=== PATIENT | male | born 1990 ===

== ENCOUNTER 2018-10-12 19:37 | Inpatient (IN) ==
[2018-10-12] MEDS ORDERED: HYDROmorphone 2 MG/1 ML VIAL IV PRN (20:03)
[2018-10-12] MEDS ORDERED: ONDANSETRON 4 MG/2 ML VIAL IV STA (20:03)
[2018-10-12] MEDS ORDERED: SODIUM CHLORIDE 0.9% 1,000 ML IV STA (20:03)
[2018-10-12] MEDS ORDERED: CEFEPIME 2,000 MG in SODIUM CHLORIDE 0.9% 100 ML IV STA (20:04)
[2018-10-12] MEDS ORDERED: CEFEPIME 2,000 MG VIAL ONE (20:10)
[2018-10-12] MEDS ORDERED: HYDROmorphone 2 MG/1 ML VIAL IV STA (20:55)
[2018-10-12] MEDS: DEXTROSE 5% LACTATED RINGERS 1,000 ML IV SCH (23:07)
[2018-10-12] MEDS: MEROPENEM 1,000 MG in SODIUM CHLORIDE 0.9% 100 ML IV SCH (23:10)
[2018-10-13 06:10] LABS: Albumin 2.8 G/DL (3.4-5.0); Bilirubin,Total 2.2 MG/DL (0.2-1.0); Calcium 8.6 MG/DL (8.5-10.1); Osmolality,Calculated 270.8 MOS/KG (273-304); Potassium 4.1 MMOL/L (3.5-5.1); Total Protein 6.8 G/DL (6.4-8.3)
[2018-10-13] MEDS: DEXTROSE 5% LACTATED RINGERS 1,000 ML IV SCH ×3 (07:18→23:59)
[2018-10-13] MEDS: PANTOPRAZOLE 40 MG VIAL IV SCH (09:07)
[2018-10-13] MEDS: MEROPENEM 1,000 MG in SODIUM CHLORIDE 0.9% 100 ML IV SCH ×2 (09:07→22:40)
[2018-10-13] MEDS: HYDROmorphone 2 MG/1 ML VIAL IV PRN ×3 (09:10→21:16)
[2018-10-13] MEDS: ONDANSETRON 4 MG/2 ML VIAL IV PRN ×2 (09:10→17:05)
[2018-10-14] MEDS: ONDANSETRON 4 MG/2 ML VIAL IV PRN ×3 (00:48→22:42)
[2018-10-14] MEDS: HYDROmorphone 2 MG/1 ML VIAL IV PRN ×4 (00:48→22:43)
[2018-10-14 05:55] LABS: Albumin 2.5 G/DL (3.4-5.0); Bilirubin,Total 1.8 MG/DL (0.2-1.0); Calcium 8.7 MG/DL (8.5-10.1); Osmolality,Calculated 272.7 MOS/KG (273-304); Potassium 3.6 MMOL/L (3.5-5.1); Total Protein 6.4 G/DL (6.4-8.3)
[2018-10-14 07:15] LABS: Basophils # 0.1 10*3/uL (0.0-0.2); Basophils % 0.6 % (0.0-0.8); Eosinophils # 0.5 10*3/uL (0.0-0.87); Eosinophils % 4.5 % (0.00-10.9); Hematocrit 41.2 VOL% (42.0-52.0); Hemoglobin 13.5 GM/DL (14.0-18.0); Lymphocytes # 1.6 10*3/uL (1.4-4.0); Lymphocytes % 15.6 % (21.2-54.2); Mean Corpuscular HGB Conc 32.8 GM/DL (32-36); Mean Corpuscular Hemoglobin 33 PG (27-34); Mean Corpuscular Volume 99.5 FL (87-102); Monocytes # 1.4 10*3/uL (0.11-0.8); Monocytes % 13.7 % (1.7-12.7); Neutrophils # 6.8 10*3/uL (1.4-7.4); Neutrophils % 64.6 % (38.7-73.9); Platelet Count 205 T/CUMM (130-400); Red Blood Count 4.14 MC/CUMM (3.8-5.5); Red Cell Distribution Width 13.1 % (9.3-17.3); White Blood Count 10.5 T/CUMM (4-12)
[2018-10-14] MEDS: DEXTROSE 5% LACTATED RINGERS 1,000 ML IV SCH ×2 (07:42→17:02)
[2018-10-14] MEDS: MEROPENEM 1,000 MG in SODIUM CHLORIDE 0.9% 100 ML IV SCH ×2 (10:00→22:27)
[2018-10-14] MEDS: PANTOPRAZOLE 40 MG VIAL IV SCH (10:00)
[2018-10-15] MEDS: DEXTROSE 5% LACTATED RINGERS 1,000 ML IV SCH ×4 (02:35→23:00)
[2018-10-15] MEDS: HYDROmorphone 2 MG/1 ML VIAL IV PRN ×3 (02:53→22:30)
[2018-10-15 08:23] LABS: Albumin 2.4 G/DL (3.4-5.0); Bilirubin,Direct 0.89 MG/DL (0.0-0.20); Bilirubin,Indirect 0.7 MG/DL (0.0-1.0); Bilirubin,Total 1.6 MG/DL (0.2-1.0); Total Protein 6.5 G/DL (6.4-8.3)
[2018-10-15] MEDS: PANTOPRAZOLE 40 MG VIAL IV SCH (09:09)
[2018-10-15] MEDS: MEROPENEM 1,000 MG in SODIUM CHLORIDE 0.9% 100 ML IV SCH ×2 (09:11→22:34)
[2018-10-15] MEDS: LACTATED RINGERS 1,000 ML IV SCH (10:42)
[2018-10-15] MEDS ORDERED: HYDROmorphone 2 MG/1 ML VIAL ONE (11:45)
[2018-10-15] MEDS ORDERED: MICROFIBRILLAR COLLAGEN POWDER 1 GM CAN TOP ONE ×2 (12:17→12:40)
[2018-10-15] MEDS ORDERED: fentaNYL 100 MCG/2 ML VIAL ONE (13:23)
[2018-10-15] MEDS ORDERED: PROPOFOL 200 MG/20 ML VIAL IV ONE (13:23)
[2018-10-15] MEDS ORDERED: MIDAZOLAM 2 MG/2 ML VIAL ONE (13:23)
[2018-10-15] MEDS ORDERED: ONDANSETRON 4 MG/2 ML VIAL ONE ×2 (13:23→13:45)
[2018-10-15] MEDS ORDERED: LABETALOL 100 MG/20 ML VIAL IV ONE (13:23)
[2018-10-15] MEDS ORDERED: SEVOFLURANE 1 UNIT/15 MINUTE INH ONE (13:23)
[2018-10-15] MEDS ORDERED: GLYCOPYRROLATE 0.4 MG/2 ML VIAL ONE (13:24)
[2018-10-15] MEDS ORDERED: ROCURONIUM 100 MG/10 ML VIAL IV ONE (13:24)
[2018-10-15] MEDS ORDERED: NEOSTIGMINE 10 MG/10 ML VIAL ONE (13:24)
[2018-10-15] MEDS ORDERED: SUCCINYLCHOLINE 200 MG/10 ML VIAL ONE (13:24)
[2018-10-15] MEDS ORDERED: ACETAMINOPHEN 1,000 MG/100 ML VIAL IV ONE (13:24)
[2018-10-15] MEDS ORDERED: ALBUMIN 5% 12.5 GM/250 ML VIAL IV ONE (13:25)
[2018-10-15] MEDS ORDERED: LACTATED RINGERS 1,000 ML IV ONE (13:25)
[2018-10-15] MEDS ORDERED: ALBUTEROL/IPRATROPIUM 3 ML NEB RESP TX PRN (13:32)
[2018-10-15] MEDS ORDERED: BISACODYL 5 MG TABLET PO PRN (13:32)
[2018-10-15] MEDS ORDERED: ACETAMINOPHEN 325 MG TABLET PO PRN (13:32)
[2018-10-15] MEDS ORDERED: MEPERIDINE 25 MG/1 ML VIAL ONE (13:44)
[2018-10-15] MEDS: MEPERIDINE 25 MG/1 ML VIAL IV PRN ×2 (13:50→14:15)
[2018-10-15] MEDS ORDERED: ROPIVACAINE 0.5% 30 ML VIAL ONE (13:53)
[2018-10-15] MEDS ORDERED: LIDOCAINE 2% 20 ML VIAL ONE (13:53)
[2018-10-15] MEDS ORDERED: LEVOFLOXACIN INJ 500 MG in PREMIX 1 EACH IV SCH (14:00)
[2018-10-15] MEDS ORDERED: HYDROmorphone 2 MG/1 ML VIAL IV PRN (14:02)
[2018-10-15] MEDS ORDERED: PROMETHAZINE INJ 25 MG in SODIUM CHLORIDE 0.9% 50 ML IV PRN (14:02)
[2018-10-15] MEDS ORDERED: ONDANSETRON 4 MG/2 ML VIAL IV PRN (14:02)
[2018-10-15 14:12] LABS: Hematocrit 37.8 VOL% (42.0-52.0); Hemoglobin 12.4 GM/DL (14.0-18.0)
[2018-10-15] MEDS: MORPHINE 4 MG/1 ML VIAL IV PRN (20:05)
[2018-10-15] MEDS: metroNIDAZOLE INJ 500 MG in PREMIX 1 EACH IV SCH (20:50)
[2018-10-15] MEDS: KETOROLAC 15 MG/1 ML VIAL IV PRN (23:46)
[2018-10-16] MEDS: MORPHINE 4 MG/1 ML VIAL IV PRN ×6 (01:56→22:05)
[2018-10-16] MEDS: metroNIDAZOLE INJ 500 MG in PREMIX 1 EACH IV SCH (03:47)
[2018-10-16 05:42] LABS: Basophils % 0.3 % (0.0-0.8); Eosinophils # 0.2 10*3/uL (0.0-0.87); Eosinophils % 2.1 % (0.00-10.9); Hemoglobin 11.7 GM/DL (14.0-18.0); Immature Granulocytes % 1.3 %; Immature Granulocytes Absolute 0.12 #; Lymphocytes % 10.2 % (21.2-54.2); Mean Corpuscular HGB Conc 33.4 GM/DL (32-36); Mean Corpuscular Hemoglobin 33 PG (27-34); Mean Corpuscular Volume 99.2 FL (87-102); Mean Platelet Volume 9.2 FL (9.6-12.0); Monocytes # 1.4 10*3/uL (0.11-0.8); Monocytes % 14.1 % (1.7-12.7); Neutrophils # 6.9 10*3/uL (1.4-7.4); Platelet Count 228 T/CUMM (130-400); Red Blood Count 3.53 MC/CUMM (3.8-5.5); Red Cell Distribution Width 12.6 % (9.3-17.3); White Blood Count 9.6 T/CUMM (4-12)
[2018-10-16 06:05] LABS: Albumin 2.4 G/DL (3.4-5.0); Bilirubin,Total 2.3 MG/DL (0.2-1.0); Calcium 8.1 MG/DL (8.5-10.1); Potassium 3.8 MMOL/L (3.5-5.1); Total Protein 5.9 G/DL (6.4-8.3)
[2018-10-16] MEDS: HYDROmorphone 2 MG/1 ML VIAL IV PRN (08:11)
[2018-10-16] MEDS: PANTOPRAZOLE 40 MG VIAL IV SCH (08:11)
[2018-10-16] MEDS: DEXTROSE 5% LACTATED RINGERS 1,000 ML IV SCH ×3 (08:15→17:26)
[2018-10-16] MEDS: ONDANSETRON 4 MG/2 ML VIAL IV PRN (09:30)
[2018-10-16] MEDS: MEROPENEM 1,000 MG in SODIUM CHLORIDE 0.9% 100 ML IV SCH ×2 (10:07→22:07)
[2018-10-16] MEDS: LACTATED RINGERS 1,000 ML IV SCH (11:45)
[2018-10-16] MEDS ORDERED: ONDANSETRON 4 MG/2 ML VIAL IV PRN (13:17)
[2018-10-16] MEDS: KETOROLAC 15 MG/1 ML VIAL IV PRN (20:46)
[2018-10-17] MEDS: MORPHINE 4 MG/1 ML VIAL IV PRN (01:20)
[2018-10-17] MEDS: DEXTROSE 5% LACTATED RINGERS 1,000 ML IV SCH ×3 (01:29→10:09)
[2018-10-17] MEDS: KETOROLAC 15 MG/1 ML VIAL IV PRN ×2 (05:29→13:11)
[2018-10-17 05:55] LABS: Basophils % 0.3 % (0.0-0.8); Eosinophils # 0.3 10*3/uL (0.0-0.87); Eosinophils % 3.4 % (0.00-10.9); Hematocrit 31.4 VOL% (42.0-52.0); Hemoglobin 10.3 GM/DL (14.0-18.0); Immature Granulocytes % 1.8 %; Immature Granulocytes Absolute 0.16 #; Lymphocytes # 1.6 10*3/uL (1.4-4.0); Lymphocytes % 18.3 % (21.2-54.2); Mean Corpuscular HGB Conc 32.8 GM/DL (32-36); Mean Corpuscular Hemoglobin 33 PG (27-34); Mean Corpuscular Volume 99.7 FL (87-102); Mean Platelet Volume 9.2 FL (9.6-12.0); Monocytes # 1.4 10*3/uL (0.11-0.8); Monocytes % 15.6 % (1.7-12.7); Neutrophils # 5.3 10*3/uL (1.4-7.4); Neutrophils % 60.6 % (38.7-73.9); Platelet Count 225 T/CUMM (130-400); Red Blood Count 3.15 MC/CUMM (3.8-5.5); Red Cell Distribution Width 12.6 % (9.3-17.3); White Blood Count 8.8 T/CUMM (4-12)
[2018-10-17 06:22] LABS: Albumin 2.2 G/DL (3.4-5.0); Bilirubin,Total 1.3 MG/DL (0.2-1.0); Eosinophils 4 % (0-10); Hypochromasia 1+; Lymphocytes 20 % (20-55); Osmolality,Calculated 271.7 MOS/KG (273-304); Ovalocytes Slight; Platelet Estimate Adequate; Potassium 3.7 MMOL/L (3.5-5.1); Segmented Neutrophils 62 % (50-85); Total Cells Counted 100; Total Protein 5.6 G/DL (6.4-8.3)
[2018-10-17] MEDS: PANTOPRAZOLE 40 MG VIAL IV SCH (09:11)
[2018-10-17] MEDS: MEROPENEM 1,000 MG in SODIUM CHLORIDE 0.9% 100 ML IV SCH ×2 (10:09→22:04)
[2018-10-18] MEDS: KETOROLAC 15 MG/1 ML VIAL IV PRN (00:10)
[2018-10-18 04:41] LABS: Basophils % 0.4 % (0.0-0.8); Eosinophils # 0.3 10*3/uL (0.0-0.87); Eosinophils % 3.5 % (0.00-10.9); Hematocrit 29.5 VOL% (42.0-52.0); Hemoglobin 9.7 GM/DL (14.0-18.0); Immature Granulocytes % 1.4 %; Immature Granulocytes Absolute 0.12 #; Lymphocytes # 1.2 10*3/uL (1.4-4.0); Lymphocytes % 14.4 % (21.2-54.2); Mean Corpuscular HGB Conc 32.9 GM/DL (32-36); Mean Corpuscular Hemoglobin 32 PG (27-34); Mean Corpuscular Volume 98.7 FL (87-102); Mean Platelet Volume 8.9 FL (9.6-12.0); Monocytes # 0.9 10*3/uL (0.11-0.8); Monocytes % 10.8 % (1.7-12.7); Neutrophils # 5.9 10*3/uL (1.4-7.4); Neutrophils % 69.5 % (38.7-73.9); Platelet Count 236 T/CUMM (130-400); Red Blood Count 2.99 MC/CUMM (3.8-5.5); Red Cell Distribution Width 12.6 % (9.3-17.3); White Blood Count 8.5 T/CUMM (4-12)
[2018-10-18 05:00] LABS: Albumin 2.4 G/DL (3.4-5.0); Calcium 8.3 MG/DL (8.5-10.1); Osmolality,Calculated 274.4 MOS/KG (273-304); Potassium 3.8 MMOL/L (3.5-5.1); Total Protein 6.1 G/DL (6.4-8.3)
[2018-10-18] MEDS: PANTOPRAZOLE 40 MG VIAL IV SCH (09:51)
[2018-10-18] MEDS: MEROPENEM 1,000 MG in SODIUM CHLORIDE 0.9% 100 ML IV SCH (09:55)
[2018-10-18 12:01] VITALS: BP 143/93
== END 2018-10-18 13:08 | disposition home or self-care (01) | DRG 416 ==
LOC: EDUNIT# → EDBD → N.ED 19:37 → N.EDINP 21:09 → N.2E 22:24
PROVIDERS: ADMIT Surgery; ATTEND Surgery
PROC: LAPCHOL (2018-10-15 10:40)